=== PATIENT | female | born 1950 | race Caucasian/White ===

== ENCOUNTER 2017-04-06 08:53 | Day surgery (SDC) | payer BC ==
[~2017-04-06 08:53] MED LIST: Lactated Ringers 1,000 ML IV SCH
[2017-04-06] MEDS ORDERED: fentaNYL 100 MCG/2 ML SDV ONE (10:06)
[2017-04-06] MEDS ORDERED: Propofol 200 MG/20 ML SDV ONE (10:06)
[2017-04-06 11:46] VITALS: BP 150/73
--- NOTE | 2017-04-06 19:40 | OR ---
PREOPERATIVE DIAGNOSIS: History of polyps. POSTOPERATIVE DIAGNOSIS: Tiny transverse polyp removed; mild diverticulosis, sigmoid. PROCEDURE PROPOSED: Total flexible colonoscopy. PROCEDURE DONE: Total flexible colonoscopy with polypectomy x1. INDICATION: This is a 66-year-old female who had a polyp removed 10 years ago, and she comes in for a recommended followup exam. She had been recommended to have a 5-year recheck, but she went 10 years. TECHNIQUE: The patient was brought to the endoscopy suite, placed in left lateral decubitus position. She was sedated with propofol per [employer]. The flexible video colonoscope was then passed transanally, and under visualization advanced to the cecum. Examination revealed normal cecal and ascending colon regions. In the transverse colon, there was a small polyp removed by hot snare technique and retrieved with suction. The remainder of the transverse and descending colon were unremarkable. Sigmoid colon revealed some mild diverticulosis and the rectal mucosa was normal. The scope was then withdrawn. The patient tolerated the procedure well. FINAL IMPRESSION: 1. Transverse colon polyp, removed. 2. Mild sigmoid diverticulosis. PLAN: The patient will be sent a letter with the pathology report. I felt that she should continue with colonic surveillance every 5 years hereafter. SCM: 04/06/2017 11:13:12 MODL: 04/06/2017 19:29:40 /[id number]
--- NOTE | 2017-04-17 08:09 | LETTER ---
04/15/2017 Alex Alegria RE: ALEX ALEGRIA : 1950 Dear Alex, The polyp removed from your colon was a benign insignificant hyperplastic polyp, which is a non precancerous type polyp. If you have a family history of colon cancer or if you have had previous precancer polyps, you should have a recheck in 5 years. If you have had none of those, you could wait 10 years before you need a repeat exam. Respectfully,
== END 2017-04-06 12:20 | disposition home or self-care (01) ==
LOC: VM.SDS 08:53
PROVIDERS: ATTEND Surgery
DX: Z12.11 Encounter for screening for malignant neoplasm of colon (principal); K63.5 Polyp of colon; K57.30 Diverticulosis of large intestine without perforation or abscess without bleeding; Z86.010 Personal history of colon polyps; M79.7 Fibromyalgia; M19.91 Primary osteoarthritis, unspecified site; E66.9 Obesity, unspecified; Z88.0 Allergy status to penicillin; Z88.1 Allergy status to other antibiotic agents; Z88.2 Allergy status to sulfonamides; Z88.8 Allergy status to other drugs, medicaments and biological substances; Z96.651 Presence of right artificial knee joint; Z98.890 Other specified postprocedural states; Z77.22 Contact with and (suspected) exposure to environmental tobacco smoke (acute) (chronic); Z68.35 Body mass index [BMI] 35.0-35.9, adult
CPT/HCPCS: 45385; J2704; J3010; J7120